=== PATIENT | female | born 1945 | race Caucasian/White ===

== ENCOUNTER 2020-05-08 12:36 | Outpatient (CLI) | payer MEDICARE, SELFPAY ==
--- NOTE | ~2020-05-08 | CT_ITS ---
EXAMINATION: CT brain wo con DATE: 05/08/2020 14:44 INDICATION: Headache TECHNIQUE: Computed tomography (CT) of the head was performed without intravenous contrast. Sagittal and coronal reconstructions were performed. The mA was adjusted according to patient size. Iterative reconstruction technique was employed. The dose-length product was 605.33 mGy-cm. COMPARISON: None FINDINGS: No acute intracranial hemorrhage, acute infarction or abnormal extra axial fluid collection. Symmetri c prominence of the sulci consistent with mild age-appropriate diffuse cerebral volume loss. Ventric les are normal and symmetric. No mass/mass effect. Changes of bilateral intraocular lens replacement. The orbits, paranasal sinuses and mastoid air cells are normal. IMPRESSION: 1. Normal aging brain. No acute intracranial process. Reviewed, dictated and finalized at location A.
[2020-05-08 15:31] LABS: Basophils Absolute Auto 0.1 K/mm3 (0.0-0.1); Basophils Percent Auto 1.2 % (0.2-1.2); Eosinophils Absolute Auto 0.2 K/mm3 (0-0.3); Hematocrit 45.7 % (37.0-47.0); Hemoglobin 15.5 g/dL (12.0-15.0); Immature Granulocyte Absolute 0.01 K/mm3 (0.00-0.031); Immature Granulocyte Percent A 0.2 % (0-0.5); Lymphocytes Absolute Auto 1.22 K/mm3 (0.9-3.2); Lymphocytes Percent Auto 30.3 % (18.3-44.2); Mean Corpuscular HGB Conc 33.9 g/dl (32-36); Mean Corpuscular Hemoglobin 30.9 pg (26-34); Mean Platelet Volume 10.7 fl (7.4-10.4); Monocytes Absolute Auto 0.3 K/mm3 (0.1-0.6); Monocytes Percent Auto 7.2 % (2.6-8.5); Neutrophils Absolute Auto 2.3 K/mm3 (1.3-6.7); Neutrophils Percent Auto 57.1 % (45.5-73.1); Platelet Count Result 263 k/mm3 (150-375); Red Blood Count 5.02 M/mm3 (4.2-5.4); Red Cell Distribution Width 13.5 % (11.5-14.5)
[2020-05-08 15:46] LABS: CRP < 0.5 mg/dL (<1.0)
[2020-05-08 16:18] LABS: Erythrocyte Sedimentation Rate 10 mm/hr (0-20)
== END 2020-05-08 12:37 | disposition home or self-care (01) ==
PROVIDERS: Visit Provider Registered Nurse
DX: G44.85 Primary stabbing headache (principal); R51 Headache
CPT/HCPCS: 36415; 70450; 85025; 85652; 86140

== ENCOUNTER 2020-05-18 07:39 | Outpatient (CLI) | payer MEDICARE, SELFPAY ==
--- NOTE | ~2020-05-18 | MR_ITS ---
EXAMINATION: MRA brain wo con DATE: 05/18/2020 08:38 INDICATION: Left-sided headache after 49. TECHNIQUE: Magnetic resonance angiography (MRA) of the brain was performed without intravenous contra st with T1-weighted SPGR by the 3D [id number] technique. Maximum intensity projection 3D-reconstr uctions were obtained. COMPARISON: Brain MRI 05/18/2020 FINDINGS: Left vertebral artery is dominant. There is no significant stenosis of basilar artery or the posterio r cerebral arteries. The posterior communicating arteries are normal. There is no significant stenosi s of the intracranial internal carotid arteries or anterior or middle cerebral arteries. Anterior com municating artery is normal. There is no aneurysm. IMPRESSION: 1. Normal brain MRA. Reviewed, dictated and finalized at location A. IMPRESSION: 1. Normal brain MRA.
--- NOTE | ~2020-05-18 | MR_ITS ---
EXAMINATION: MR brain/brain stem wo con DATE: 05/18/2020 08:38 INDICATION: Left-sided headache after 49. TECHNIQUE: Magnetic resonance imaging (MRI) of the brain and brainstem was performed without intraven ous contrast. Sequences included sagittal and axial T1-weighted FSE, axial diffusion-weighted FS EPI, axial T2*-weighted GRE, axial T2-weighted FLAIR Propeller, and axial T2-weighted Propeller. Apparent diffusion coefficient (ADC) maps were created. COMPARISON: Head CT 05/08/2020 FINDINGS: There are scattered areas of nonspecific increased T2-weighted signal intensity in the cere bral white matter, which is within normal limits for the patient's age. There is no intracranial hemo rrhage, acute infarction, or abnormal intracranial mass lesion. The ventricles are normal in size. Th ere is mild mucosal thickening in the paranasal sinuses. There are likely changes of ocular lens repl acement surgeries. The mastoid air cells are normal. IMPRESSION: 1. Normal aging brain. Reviewed, dictated and finalized at location A. IMPRESSION: 1. Normal aging brain.
== END 2020-05-18 07:40 | disposition home or self-care (01) ==
PROVIDERS: PCP Internal Medicine; Visit Provider Internal Medicine
DX: R51 Headache (principal); H53.2 Diplopia; R42 Dizziness and giddiness
CPT/HCPCS: 70544; 70551

== ENCOUNTER 2024-01-29 16:52 | Emergency (ER) | payer MEDICARE, SELFPAY ==
--- NOTE | ~2024-01-29 | XR_ITS ---
EXAMINATION: XR finger 3rd LT min 2V INDICATION: Left third finger foreign body, centrally needle cough and tip of the third finger TECHNIQUE: Three views of the left third finger are obtained. COMPARISON: None FINDINGS: There is a 7 mm sewing needle embedded in the lateral tuft of the left third finger. There is no fracture. 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 IMPRESSION: 1. 7 mm sewing needle fragment embedded in the lateral tuft of the left third finger. Reviewed, dictated and finalized at location F. UELS PRODUCTION MANAGER IMPRESSION: 1. 7 mm sewing needle fragment embedded in the lateral tuft of the left third f therese.
[2024-01-29 16:56] VITALS: BP 134/89; PULSE 66; RESP 16; TEMP 36.3; O2SAT 100
--- NOTE | 2024-01-29 18:32 | ED.GENADULT ---
HPI - General Adult General Chief complaint: Skin/Abscess/Foreign Body <Basim العراقي PA-C - Last Filed: 01/30/24 02:32> Stated complaint: sewing needle broke off in finger <CONNIE De La Cruz Last Filed: 01/30/24 02:32> Time Seen by Provider: 01/29/24 18:02 <CONNIE De La Cruz Last Filed: 01/30/24 02:32> Source: patient <CONNIE De La Cruz Last Filed: 01/30/24 02:32> Mode of arrival: ambulatory <CONNIE De La Cruz Last Filed: 01/30/24 02:32> Limitations: no limitations <CONNIE De La Cruz Last Filed: 01/30/24 02:32> History of Present Illness HPI narrative: This is an 79-year-old female who presents to the ED with chief complaint of a sewing needle injury that occurred just prior to arrival. Patient states that she was using a sewing machine and accidentally had the needle break off into her 3rd left finger. Reports that she was unable to get the needle out and is imbedded in her finger. Reports pain to this area. Denies any numbness or weakness. Denies any further sites of pain or injury. <CONNIE De La Cruz Last Filed: 01/30/24 02:32> Related Data Allergies/adverse reactions: Allergies Allergy/AdvReac Type Severity Reaction Status Date / Time No Known Allergies Allergy Mild Verified 07/26/08 17:58 <CONNIE De La Cruz Last Filed: 01/30/24 02:32> Review of Systems Review of Systems: All systems as dictated in HPI <CONNIE De La Cruz Last Filed: 01/30/24 02:32> Exam Narrative: GENERAL: Well-appearing, well-nourished, and in no acute distress. HEAD: Normocephalic, atraumatic. EYES: PERRLA and EOMI. ENT: Nares clear, no rhinorrhea or epistaxis. Mucous membranes moist. Oropharynx without tonsillar hypertrophy exudate or other lesions. NECK: Supple. No adenopathy or masses. CHEST: No respiratory distress. Clear to auscultation. No wheezes rales or rhonchi HEART: Regular rate and rhythm. No murmur heard. Normal peripheral pulses. ABDOMEN: Soft, nontender, nondistended, normal active bowel sounds. MSK: Mild swelling to the left 3rd finger distally. No bruising or hematoma. normal range of motion. No edema. SKIN: Warm, dry, no rash. No obvious skin break throughout the hands. no bleeding NEURO: Alert and oriented x3. No focal deficits. PSYCH: Normal mood and affect. <Basim العراقي PA-C - Last Filed: 01/30/24 02:32> Course INTERVENTIONIST/PA Physician Supervision This visit was performed by both a physician and an APC. I performed all aspects of the MDM as documented. <Asif Santana MD - Last Filed: 01/29/24 22:30> Vital Signs Vital signs: Vital Signs Temperature 97.3 F L 01/29/24 16:56 Pulse Rate 66 01/29/24 16:56 Respiratory Rate 16 01/29/24 16:56 Blood Pressure 134/89 01/29/24 16:56 Pulse Oximetry 100 01/29/24 16:56 Oxygen Delivery Room Air 01/29/24 16:56 Temperature 97.3 F L 01/29/24 16:56 Pulse Rate 67 01/29/24 19:42 Respiratory Rate 17 01/29/24 19:42 Blood Pressure 125/80 01/29/24 19:42 Pulse Oximetry 97 01/29/24 19:42 Oxygen Delivery Room Air 01/29/24 16:56 <Basim العراقي PA-C - Last Filed: 01/30/24 02:32> Vital Signs Temperature 97.3 F L 01/29/24 16:56 Pulse Rate 66 01/29/24 16:56 Respiratory Rate 16 01/29/24 16:56 Blood Pressure 134/89 01/29/24 16:56 Pulse Oximetry 100 01/29/24 16:56 Oxygen Delivery Room Air 01/29/24 16:56 Temperature 97.3 F L 01/29/24 16:56 Pulse Rate 67 01/29/24 19:42 Respiratory Rate 17 01/29/24 19:42 Blood Pressure 125/80 01/29/24 19:42 Pulse Oximetry 97 03/01/24 19:42 Oxygen Delivery Room Air 01/29/24 16:56 <Asif Santana MD - Last Filed: 01/29/24 22:30> Procedures Foreign Body Removal Foreign Body #1: Foreign Body Removal Date: 01/29/24 <Basim العراقي PA-C - Last Filed: 01/30/24 02:32> Foreign Body Removal Time: 19:25 <Basim العراقي PA-C - Last Jamie
--- NOTE | 2024-01-29 19:11 | PC.NURSE ---
Report received from MARV Waterman. Assumed care of patient at this time.
[2024-01-29] MEDS: TETANUS,DIPHTHERIA,AC PERTUSSIS ADULT (0.5 ML) BOOSTRIX IM (19:17)
[2024-01-29 19:42] VITALS: BP 125/80; PULSE 67; RESP 17; O2SAT 97
== END 2024-01-29 19:46 | disposition home or self-care (01) ==
PROVIDERS: Emergency Provider Physician Assistant; PCP Internal Medicine
DX: S61.243A Puncture wound with foreign body of left middle finger without damage to nail, initial encounter (principal); Z23 Encounter for immunization; W26.8XXA Contact with other sharp object(s), not elsewhere classified, initial encounter
CPT/HCPCS: 73140; 90471; 90715; 99283

== ENCOUNTER 2025-03-15 16:36 | Emergency (ER) | payer MEDICARE, SELFPAY ==
[2025-03-15] VITALS (18 sets, daily range): BP systolic 117–134; BP diastolic 70–85; PULSE 61–70; RESP 13–21; TEMP 36.4–36.8; O2SAT 95–100
--- NOTE | ~2025-03-15 | CT_ITS ---
CT brain wo con Ordering provider: Keyla Ramos PA-C History: 80 years Female with . syncope . Comparison: May 08, 2020 Technique: CT of the head without contrast. Radiation reduction technique utilized. The dose-length p roduct was 605.33 mGy-cm. FINDINGS: BRAIN PARENCHYMA AND CSF SPACES: Mild leukoaraiosis and diffuse cortical atrophy. Mild atheromatous d isease. No midline shift, mass effect or hemorrhage. The brain parenchyma and CSF spaces are otherwi se normal. VISUALIZED PARANASAL SINUSES: Well aerated. MASTOIDS: Well aerated. BONES: The bones appear intact. SOFT TISSUES: Visualized nasopharynx is normal. Superficial soft tissues are normal. IMPRESSION: No acute intracranial findings. Reviewed, dictated and finalized at location A.
--- NOTE | ~2025-03-15 | XR_ITS ---
XR chest 2V Ordering provider: Keyla Ramos PA-C History: 80 years Female with . syncopal episode . Comparison: None. FINDINGS: MEDIASTINUM: The cardiac silhouette is not enlarged. LUNGS: No effusions or pneumothorax. Focal atelectatic area in the left costophrenic angle. 4 mm nodu le or granuloma in the right upper lobe. [address] follow-up advised. OTHER: No free air under the diaphragm. IMPRESSION: Focal atelectatic area in the left costophrenic angle. Otherwise, No acute cardiopulmonary pathology. 4 mm nodule in the right upper lobe. 6 months follow-up advised. Reviewed, dictated and finalized at location A. IMPRESSION: Focal atelectatic area in the left costophrenic angle. Otherwise, No acute card iopulmonary pathology. 4 mm nodule in the right upper lobe. 6 months follow-up advised.
--- NOTE | 2025-03-15 16:55 | ECG_ITS ---
Test Date: 2025-03-15 16:55:57 Measurements Intervals [place] Rate: 65 P: 85 DC: 138 QRS: 12 QRSD: 72 T: 47 QT: 395 QTc: 414 Interpretive Statements SINUS RHYTHM CANNOT R/O SEPTAL INFARCT, AGE INDETERMINATE BASELINE ARTIFACT- I, III, AVR, AVL, V2 ABNORMAL ECG No previous ECG available for comparison Electronically Signed On 03-16-2025 09:15:23 CDT by Abiodun De La Cruz D.O.
--- OUTSIDE RECORDS SUMMARY | 2025-03-15 16:55 | XMS_ITS | Clinical Summary ---
Author Organization [facility] Address [facility] [place] [address] Care Team Providers Care Steam Presser Name Role Phone Raul Sanabria MD Primary Care Provider [phone] Allergies No known active allergies Medications carisoprodol (SOMA) 350 MG tabletIndication s:Chronic low back pain, unspecified back pain laterality, unspecified whether sciatica present Take 1 tablet (350 mg total) by mouth 2 (two) times daily as needed for Muscle Spasms. 30 tablet 01/26/2023 Active Active Problems Problem Noted Date Diagnosed Date Dry eyes, bilateral 12/21/2018 Hemorrhoids 08/10/2018 Right hip pain 06/04/2016 Low back pain 02/06/2016 Cataract 08/02/2014 Alopecia 08/02/2014 Muscle cramps 08/02/2014 Encounters Date Type Department Care Team Description 03/15/2025 Telephone [facility] Family & Internal Medicine [address] [address] Raul Sanabria MD Syncope from Last 3 Months Immunizations Immunization Administration Dates Next Due Arexvy Respiratory Syncytial Virus (RSV, adjuvanted) 0.5 mL, PF 08/24/2024 Fluzone High Dose (IIV, triv alent, 0.5mL) 09/05/2024 Fluzone High Dose - >Age 65 (Prefilled Syringe) 09/23/2021,11/06/2014,12/10/2013 Hepatitis A (Generic) 10/14/2007,01/11/2007 Hepatitis B (Generic: Adult) 10/14/2007,02/13/20 07,01/11/2007 Influenza Adult (Generic) 09/18/2023,12/09/2012 Pneumococcal (Pneumovax 23) 12/10/2013 Pneumococcal (Prevnar 13) 12/22/2017 Tdap (Generic) 01/29/2024,,08/10/2018,2017,05/28/2017 Tetanus/Diptheria 01/11/2007 Family History Medical History Relation Comments Lung Cancer Father Relation Status Comments Father Social History Tobacco Use Types Packs/Day Years Used Date Smoking Tobacco: Never Smokeless Tobacco: Never Tobacco Cessation:Counseling Given: No Alcohol Use Standard Drinks/Week Comments Not Currently 0 (1 standard drink = 0.6 oz pur e alcohol) AUDIT-C Answer Date Recorded Frequency of Alcohol Consumption Monthly or less 12/21/2018 Average Number of Drinks 1 or 2 019 Frequency of Binge Drinking Never 12/01 PHQ-2 Answer Date Recorded Patient Health Questionnaire-2 Score 2 06/29/2024 Comments No Sex and Gender Information Value Date Recorded Sex Assigned at Female 12/21/2018 1:15 PM BLOCKER POLISHING Legal Sex Female 9:40 PM CDT Gender Identity Female 12/21/2018 1:15 PM BLOCKER POLISHING Sexual Orientation Straight 12/21/2018 1: 15 PM BLOCKER POLISHING Last Filed Vital Signs Vital Sign Reading Time Taken Comments Blood Pressure 112/70 06/29/2024 10:10 AM CDT Pulse 65 06/29/2024 10:10 AM CDT Temperature 36.7 C (98.1 F) 06/29/2024 10:10 AM CDT Respiratory Rate 16 06/29/2024 10:10 AM CDT Oxygen Saturation 98% 06/29/2024 10:10 AM CDT Inhaled Oxygen Concentration - - Weight 54.1 kg (119 lb 4.8 oz) 06/29/2024 10:10 AM CDT Height 161.3 cm (5' 3.5 ) 06/29/2024 10:10 AM CD T Body Mass Index 20.8 06/29/2024 10:10 AM CDT Plan of Treatment Health Maintenance Due Date Last Done Comments Zoster Vaccines (1 of 2) 1994 Annual Medicare Wellness Visit 2009 Dexa Scan (General) 2009 COVID-19 Vaccine ( season) 2024 09/06/2021, 12/25/2020, 12/04/2020 PHQ-2 (Physician Round Top) 11/30/2024 06/29/2024 DTaP, Tdap and Td Vaccines (6 - Td or Tdap) 01/28/2034 01/29/2024, 01/31/2023, 08/10/2018, Additional history exists Pneumococcal Vaccine: 50+ Years Completed 12/22/2017, 12/10/2013 RSV Immunization or 60+ Years Completed 08/24/2024 Meningococcal B Vaccine Aged Out No l onger eligible based on patient's age to complete this topic Meningococcal Vaccine Aged Out No makenzie xavi eligible based on patient's age to complete this topic RSV Immunizations Under 20 Months Aged Out No longer eligible based on patient's age to complete this topic Insurance AETNA Care Teams Steam Presser Relationship Specialty Start Date End Date Raul Sanabria MD [address] [place] [address] [id number] PCP - General INTERNAL MEDICINE 12/21/18
--- OUTSIDE RECORDS SUMMARY | 2025-03-15 16:55 | XMS_ITS | Continuity of Care Document ---
Author Organization [facility] Address [address] [facility] [address] [place] [address] Phone Care Team Providers Care Technical Implementation Lead Name Role Phone Lit Nails PT Unavailable Unavailable Procedures Procedure Date Therapeutic Activities Neuromuscular Re-Ed Therapeutic Activities Neuromuscular Re-Ed Therapeutic Activities Neuromuscular Re-Ed Therapeutic Activities Therapeutic Activities Neuromuscular Re-Ed Therapeutic Activities Therapeutic Activities Therapeutic Activities Neuromuscular Re-Ed Therapeutic Activities Neuromuscular Re-Ed Therapeutic Activities Neuromuscular Re-Ed Therapeutic Activities Therapeutic Activities Neuromuscular Re-Ed Therapeutic Activities Therapeutic Activities Neuromuscular Re-Ed Therapeutic Activities Neuromuscular Re-Ed Doc neg elder mal no plan PRES/ABSN URINE INCON ASSESS PT Evaluation Low Complexity Therapeutic Activities Neuromuscular Re-Ed Advance Directives Directive Yes / No Effective Date File Name No Information Encounters Encounter Description Practice Location Reason(s) For Visit Diagnoses Date Provider Providers Copied on Encounter [facility], [address], [place], [place], [id number], [place] tel:[phone] [place] No Information Oct-2 [address] [facility] [address], [place], [place], [id number], tel:[phone] [facility] No Information Sep-3 0-202 4 Jesu Lit. . Referring Provider: Raul Sanabria, [address] [place], [address]. tel:[phone] [place] [address] [address], [place], [place], [id number], [place] tel:[phone] [facility] No Information Sep-2 4 Jose Diaz. . Referring Provider: Raul Sanabria, [address] [place], [address]. tel:[phone] [place] [address], [id number], tel:[phone] [facility] No Information Sep-2 4 Jesu Lit. . Referring Provider: Raul Sanabria [address] [place], [address]. tel:[phone] [place] [address], [id number], tel:[phone] [facility] No Information Sep-1 4 Jesu Lit. . Referring Provider: Raul Sanabria, [address] [place], [address]. tel:[phone] [place] [address], [id number], [place] tel:[phone] [facility] No Information Sep-1 4 Jesu Lit. . Referring Provider: Raul Sanabria [address] [place], [address]. tel:[phone] [place] [id number] [address], [id number], [place] tel:[phone] [place] No Information Sep-1 - 4 Jesu Lit. . Referring Provider: Raul Sanabria, [address] [place], [address]. tel:[phone] [facility], [address], [place], [place], [id number], [place] tel:[phone] [place] No Information Sep-0 4 Jesu Lit. . Referring Provider: Raul Sanabria, [address] [place], [address]. tel:[phone] [facility] [address] [facility] [address], [place], [place], [id number], [place] tel:[phone] [place] No Information Sep-0 4 Jesu Lit. . Referring Provider: Raul Sanabria [address] [place], [address]. tel:[phone] [facility], [address] [facility] [address], [place], [id number], [place] tel:[phone] [place] No Information Sep-0 4 Jesu Lit. . Referring Provider: Raul Sanabria, [address] [place], [address]. tel:[phone] [facility] [facility] [address], [place], [id number], [place] tel:[phone] [place] No Information Aug-2 4 Jesu Lit. . Referring Provider: Raul Sanabria [address] [place], [address]. tel:[phone] [facility] [facility] [address], [place], [id number], [place] tel:[phone] [place] No Information Aug-2 4 Jesu Lit. . Referring Provider: Raul Sanabria [address] [place], [address]. tel:[phone] [facility] [address], [id number], tel:[phone] [place] No Information 4 Jesu Lit. . Referring Provider: Raul Sanabria, [place], [address]. tel:[phone], [id number], [place] tel:[phone] [place] No Information 4 Jesu Lit. . Referring Provider: Raul Sanabria, [address] [place], [address]. tel:[phone] [facility] [address] [place] [address], [id number], tel:[phone] [place] No Information 4 Jesu Lit. . Referring Provider: Raul Sanabria, [place], [address]. tel:[phone], [id number], tel:[phone] [place] No Information 4 Jesu Lit. . Referring Provider: [place], [address]. tel:[phone] [facility] [address] [place] [address], [id number], [place] tel:[phone] [place] No Information 4 Jesu Lit. . Referring Provider: [place], [address]. tel:[phone] Family History Family Member Type Diagnosis Age At Onset No Information Payers Payer name Insurance type Covered constitution party ID Avni whatley(s) Aetna Medicare Replacement CI [id number] Social History Type Description Quantity Date Captured Comments Sex Female Smoking Status No Information Chief Complaint And Reason For Visit No Information Reason For Referral Reason For Referral No Information History Of Present Illness Encounter Date Complaint History Of Prese nt Illness No Information Functional Status Date Functional Assessmen t No Information Instructions Date Instruction Additional Infor mation No Information Assessments Type Assessment Date No Information Patient Care Teams Name Effective Dates (start - stop) Status Members No Information
--- OUTSIDE RECORDS SUMMARY | 2025-03-15 16:55 | XMS_ITS | Encounter Summary ---
Author Organization [facility] Address [facility] [place] [address] Care Team Providers Care Hydro Generation Supervisor Name Role Phone Raul Sanabria MD Primary Care Provider [phone] Reason for Visit * Reason Onset Date Comments Syncope 03/15/2025 Encounter Details Date Type Department Care Team (Late st Contact Info) Description 03/15/[address] [facility] Family & Internal Medicine [place] [id number] [place] [address] [facility] [place] [address] Syncope Social History Tobacco Use Types Packs/Day Years Used Date Smoking Tobacco: Never Smokeless Tobacco: Never Alcohol Use Standard Drinks/Week Comments Not Currently [...] Sex Assigned at Female 12/21/2018 1:15 PM ATTORNEY LAW CLERK Legal Sex Female 9:40 PM CDT Gender Identity Female 12/21/2018 1:15 PM ATTORNEY LAW CLERK Sexual Orientation Straight 12/21/2018 1: 15 PM ATTORNEY LAW CLERK documented as of this encounter Progress Notes * Mel Pichardo MA - 03/15/2025 2:08 PM CDT Left a detailed message on Spouse, Deshawn's, VM with provider recommendation and reiterating that patient should be taken to ER. * Raul Sanabria MD - 03/15/2025 1:58 PM CDT She really needs to be seen in the ED, they can do all testing and get the results quickly, and [place] them immediately. * Clyde Weston RTR - 03/15/2025 10:48 AM CDT Syncope episode this morning reports she became unconscious; vitals were fine. Not wanting to go [facility] ED. Pt. Was sitting down felt like she was going to pass out told her and he got her [facility] bedroom to lay down before she passed out for a few minutes he is retired EMT he monitored her vitals while unconscious and states they were all normal. Wanted to get her in to be seen by PCP possibly order some test. Pts. said if anything changes he will take her to the ED and let us know as well. Pt has been light headed for 6 months. Under lots of stress. documented in this encounter Plan of Treatment Not on file documented as of this encounter Visit Diagnoses Not on filedocumented in this encounter Additional Health Concerns Assessment Noted Time PHQ-9 Depression Total Score: 5 05/22/20 21 10:14 AM CDT documented as of this encounter Care Teams Hydro Generation Supervisor Relationship Specialty Start Date End Date Raul Sanabria MD [address] [place] [address] PCP - General INTERNAL MEDICINE 12/21/18 documented as of this encounter
--- NOTE | 2025-03-15 17:01 | ECG_ITS ---
Test Date: 2025-03-15 19:56:28 Measurements Intervals [place] Rate: 65 P: 86 PA: 153 QRS: 18 QRSD: 78 T: 49 QT: 400 QTc: 417 Interpretive Statements SINUS RHYTHM DELAYED PRECORDIAL R/S TRANSITION BASELINE ARTIFACT- I, II, III, AVR, AVL, AVF, V1-V6 BORDERLINE ECG No previous ECG available for comparison Electronically Signed On 03-15-2025 19:55:52 CDT by Abiodun De La Cruz D.O.
[2025-03-15 17:09] LABS: Basophils Absolute Auto 0.1 K/mm3 (0.0-0.1); Basophils Percent Auto 1.4 % (0.2-1.2); Eosinophils Absolute Auto 0.2 K/mm3 (0-0.3); Hematocrit 42.5 % (37.0-47.0); Immature Granulocyte Absolute 0.01 K/mm3 (0.00-0.031); Immature Granulocyte Percent A 0.2 % (0-0.5); Lymphocytes Absolute Auto 1.38 K/mm3 (0.9-3.2); Lymphocytes Percent Auto 27.5 % (18.3-44.2); Mean Corpuscular HGB Conc 32.9 g/dl (32-36); Mean Corpuscular Hemoglobin 30.3 pg (26-34); Mean Platelet Volume 10.5 fl (7.4-10.4); Monocytes Absolute Auto 0.4 K/mm3 (0.1-0.6); Monocytes Percent Auto 8.6 % (2.6-8.5); Neutrophils Percent Auto 59.3 % (45.5-73.1); Platelet Count Result 240 k/mm3 (150-375); Red Blood Count 4.62 M/mm3 (4.2-5.4); Red Cell Distribution Width 13.6 % (11.5-14.5)
--- OUTSIDE RECORDS SUMMARY | 2025-03-15 17:16 | XMS_ITS | Continuity of Care Document ---
Author Organization [facility] Address [address] [place] [address] Phone Care Team Providers Care Sas Etl Developer Name Role Phone Lit Nails PT Unavailable [...] Diagnoses Date Provider Providers Copied on Encounter [facility], [address], [place], [place], [id number], [place] tel:[phone] [place] No Information Oct-2 4 Jesu Lit. . [facility] [address], [place], [place], [id number], tel:[phone] [facility] No Information Sep-3 0-202 4 Jesu Lit. . Referring Provider: Raul Sanabria, [address] [place], [address]. tel:[phone] [place] [address] [address], [place], [place], [id number], [place] tel:[phone] [facility] No Information Sep-2 4 Jose Diaz. . Referring Provider: Raul Sanabria, [address] [place], [address]. tel:[phone] [place] [address], [id number], tel:[phone] [facility] No Information Sep-2 4 Jesu Lit. . Referring Provider: Raul Sanabria [address] [place], [address]. tel:[phone] [place] [address], [id number], tel:[phone] [facility] No Information Sep-1 4 Jesu Lit. . Referring Provider: Raul Sanabria, [address] [place], [address]. tel:[phone] [place] [address], [id number], [place] tel:[phone] [facility] No Information Sep-1 4 Jesu Lit. . Referring Provider: Raul Sanabria [address] [place], [address]. tel:[phone] [place] [id number] [address], [id number], [place] tel:[phone] [place] No Information Sep-1 - 4 Jesu Lit. . Referring Provider: Raul Sanabria, [address] [place], [address]. tel:[phone] [facility], [address], [place], [place], [id number], [place] tel:[phone] [place] No Information Sep-0 4 Jesu Lit. . Referring Provider: Raul Sanabria, [address] [place], [address]. tel:[phone] [facility] [address], [place], [place], [id number], [place] tel:[phone] [place] No Information Sep-0 4 Jesu Lit. . Referring Provider: Raul Sanabria [address] [place], [address]. tel:[phone] [facility], [address], [place], [id number], [place] tel:[phone] [place] No Information Sep-0 4 Jesu Lit. . Referring Provider: Raul Sanabria, [address] [place], [address]. tel:[phone] [facility] [facility] [address], [place], [id number], [place] tel:[phone] [place] No Information Aug-2 4 Jesu Lit. . Referring Provider: Raul Sanabria [address] [place], [address]. tel:[phone] [facility], [place], [id number], [place] tel:[phone] [place] No Information Aug-2 4 Jesu Lit. . Referring Provider: Raul Sanabria [address] [place], [address]. tel:[phone] [facility] [address], [id number], tel:[phone] [place] No Information 4 Jesu Lit. . Referring Provider: Raul Sanabria, [place], [address]. tel:[phone], [id number], [place] tel:[phone] [place] No Information 4 Jesu Lit. . Referring Provider: Raul Sanabria, [address] [place], [address]. tel:[phone] [facility] [address] [place] [address], [id number], tel:[phone] [place] No Information 4 Jesu Lit. . Referring Provider: Raul Sanabria, [place], [address]. tel:[phone], [id number], tel:[phone] [place] No Information 4 Jesu Lit. . Referring Provider: [place], [address]. tel:[phone] [facility] [address] [place] [address], [id number], [place] tel:[phone] [place] No Information 4 Jesu Lit. . Referring Provider: [place], [address]. tel:[phone] Family History Family Member Type Diagnosis Age At Onset No Information Payers Payer name Insurance type Covered constitution party ID Avni whatley(s) [employer] Medicare Replacement CI [id number] Social History Type Description Quantity Date Captured [...]
--- OUTSIDE RECORDS SUMMARY | 2025-03-15 17:16 | XMS_ITS | Clinical Summary ---
Author Organization [facility] Address [facility] [place] [address] Care Team Providers Care Home Performance Consultant Name Role Phone Raul Sanabria MD Primary Care Provider [phone] Allergies No known active allergies Medications carisoprodol [...] Type Department Care Team Description 03/15/2025 Telephone [facility] Family & Internal Medicine [address] [address] Raul Sanabria MD Syncope from [...] Sex Assigned at Female 12/21/2018 1:15 PM EDUCATIONAL INTERPRETER Legal Sex Female 9:40 PM CDT Gender Identity Female 12/21/2018 1:15 PM EDUCATIONAL INTERPRETER Sexual Orientation Straight 12/21/2018 1: 15 PM EDUCATIONAL INTERPRETER Last Filed Vital Signs Vital Sign Reading [...] season) 2024 09/06/2021, 12/25/2020, 12/04/2020 PHQ-2 (Physician [place]) 11/30/2024 06/29/2024 DTaP, Tdap and Td Vaccines [...] complete this topic Insurance [employer] Care Teams Home Performance Consultant Relationship Specialty Start Date End Date Raul Sanabria MD [address] [place] [phone] PCP - General INTERNAL MEDICINE 12/21/18
--- OUTSIDE RECORDS SUMMARY | 2025-03-15 17:16 | XMS_ITS | Encounter Summary ---
Author Organization [facility] Address [facility] [place] [address] Care Team Providers Care Event Attendant Name Role Phone Raul Sanabria MD Primary Care Provider [phone] Reason for Visit * Reason Onset Date Comments Syncope 03/15/2025 Encounter Details Date Type Department Care Team (Late st Contact Info) Description 03/15/[address] [facility] Family & Internal Medicine [address] [place] [address] Raul Sanabria MD [facility] [place] [address] Syncope Social History Tobacco Use [...] Sex Assigned at Female 12/21/2018 1:15 PM ASH KIER BOILER Legal Sex Female 9:40 PM CDT Gender Identity Female 12/21/2018 1:15 PM ASH KIER BOILER Sexual Orientation Straight 12/21/2018 1: 15 PM ASH KIER BOILER documented as of this encounter Progress Notes [...] vitals were fine. Not wanting to go [facility] ED. Pt. Was sitting down felt like she was going to pass out told her and he got her [facility] bedroom to lay down before she passed [...] documented as of this encounter Care Teams Event Attendant Relationship Specialty Start Date End Date Raul Sanabria MD [address] [place] [id number] PCP - General INTERNAL MEDICINE 12/21/18 documented as of this encounter
[2025-03-15 17:20] LABS: Alanine Aminotransferase 16 U/L (6-35); Albumin Level 4.2 g/dL (3.5-5.1); Alkaline Phosphatase 81 U/L (38-126); Anion Gap 8 mmol/L (4-12); Aspartate Amino Transferase 29 U/L (14-36); Bilirubin,Total 0.7 mg/dL (0.2-1.3); Blood Urea Nitrogen 16 mg/dL (7-17); Calcium 8.9 mg/dL (8.4-10.2); Carbon Dioxide 24 mmol/L (22-30); Chloride 103 mmol/L (98-107); Estimated CRCL calculation 43 ml/min; Estimated Glomerular Filt Rate > 60; Glucose 94 mg/dL (65-110); Sodium 135 mmol/L (137-145)
--- NOTE | 2025-03-15 17:22 | ED.GENADULT ---
HPI - General Adult General Chief complaint: Unspecified Stated complaint: Facial numbness/syncope at 0800 Time Seen by Provider: 03/15/25 16:57 Source: patient Mode of arrival: ambulatory Limitations: no limitations History of Present Illness HPI narrative: Patient is an 80-year-old female who presents the ED with report of syncope. Patient reports she was sitting at her dining table this morning around 730-8 p.m. when she suddenly began feeling very weak, had chest heaviness, felt a blackness coming over her, tingling around her mouth and nose, felt near syncopal. She laid her head down to rest and called out for her . Her put her in his Rollator to take her to their bedroom and notes that she lost consciousness for 30 seconds to 1 minute. There was no seizure-like activity. He then laid her down and patient was alert and talking. She fell asleep for approximately 10 minutes. She felt better this afternoon and they went grocery shopping together, however her PCP recommended that she come to the ED for further evaluation. Patient reports she feels fatigued and weak overall. Denies focal weakness or numbness. Denies confusion, slurred speech. Denies current chest pain, shortness of breath, dizziness. Does complain of a slight tightness around her head, denies significant pain. Denies vision changes currently. notes that patient has had syncopal episodes in the past. Related Data Allergies Allergy/AdvReac Type Severity Reaction Status Date / Time No Known Allergies Allergy Mild Verified 03/15/25 17:02 Review of Systems Review of Systems: All systems reviewed & are unremarkable except as noted in HPI. All systems reviewed & are unremarkable except as noted in HPI and below Exam Narrative: GENERAL: Elderly, thin, frail, non-toxic, in no acute distress. HEAD: Normocephalic, atraumatic. EYES: PERRL/EOMI, conjunctivae clear bilaterally. No nystagmus. NECK: Supple. No meningeal signs. RESPIRATORY: Airway patent, respirations nonlabored. Clear to auscultation bilaterally, no rales, rhonchi, wheezing. CARDIOVASCULAR: Regular rate and rhythm without murmurs, rubs, or gallops. Peripheral pulses 2+ and equal bilaterally. MUSCULOSKELETAL: Moves all extremities. No gross deformities. SKIN: Warm, dry, normal color. No rashes. NEURO: A&O X3. Speech clear. Follows commands. CN II-XII intact. Sensation grossly intact. Steady gait. No ataxic movements. Strength 5/5 in upper and lower extremities bilaterally. Uhnx-qa-qsqi and lxyzgp-hg-[id number] testing intact bilaterally. No pronator drift. Equal photography manager strength bilaterally. PSYCHIATRIC: Appropriate mood and affect. Normal interaction. Course Vital Signs Vital signs: Vital Signs Temperature 97.5 F L 03/15/25 16:51 Pulse Rate 64 03/15/25 16:51 Respiratory Rate 14 03/15/25 16:51 Blood Pressure 134/73 03/15/25 16:51 Pulse Oximetry 98 03/15/25 16:51 Oxygen Delivery Room Air 03/15/25 16:51 Temperature 98.3 F 03/15/25 20:54 Pulse Rate 65 03/15/25 20:54 Respiratory Rate 16 03/15/25 20:54 Blood Pressure 128/85 03/15/25 20:54 Pulse Oximetry 97 03/15/25 20:54 Oxygen Delivery Room Air 03/15/25 16:51 Medical Decision Making [facility] Narrative Medical decision making narrative: Patient presented to ED status post syncopal episode this morning, associated with chest heaviness, brief LOC, feels weak and fatigued currently. Vital signs are stable upon arrival. Patient is in no acute distress upon my evaluation. She is neurologically intact upon my evaluation. No focal deficits. Follows all commands. denied any report of slurred speech or confusion today. No significant orthostatic hypotension. EKG without ischemic changes. Baseline troponin undetectable. Basic laboratory studies are unremarkable. No significant electrolyte derangement. Stable kidney function. No leukocytosis or anemia. UA is consistent with infection, positive nitrate, greater than 100 WBC, 4+ urine bacteria. Sent for culture. Will treat. Given dose of Rocephin in the ED. Chest x-ray showing atelectatic changes, pulm nodule, no acute findings. CT brain negative. 3 hour troponin also undetectable. Patient has not had any recurrence of symptoms. She has remained stable throughout ED stay. Feeling improved after fluids. Remains neurologically intact. She states she is ready to go home. Discussed overall reassuring workup, abx for UTI. Offered admission for further w/u, utilized shared decision-making with patient and . They would prefer to go home. She does not want to be admitted at this time. I advised very close follow-up with PCP for further evaluation, strict return precautions. Patient and voiced understanding, feel comfortable going home. again notes patient has had syncopal episodes in the past. Again emphasized worrisome signs/sx's/return precautions. D/C in stable condition. Patient ambulatory with a steady gait. Medical Records Medical records reviewed: Yes I reviewed the external patient's medical records. Vital Signs Vital Signs: Vital Signs Temperature 97.5 F L 03/15/25 16:51 Pulse Rate 64 03/15/25 16:51 Respiratory Rate 14 03/15/25 16:51 Blood Pressure 134/73 03/15/25 16:51 Pulse Oximetry 98 03/15/25 16:51 Oxygen Delivery Room Air 03/15/25 16:51 Temperature 98.3 F 03/15/25 20:54 Pulse Rate 65 03/15/25 20:54 Respiratory Rate 16 03/15/25 20:54 Blood Pressure 128/85 03/15/25 20:54 Pulse Oximetry 97 03/15/25 20:54 Oxygen Delivery Room Air 03/15/25 16:51 Lab Data Lab results reviewed: Yes I reviewed the patient's lab results. 03/15/25 17:03 03/15/25 17:03 Labs: Lab Results 03/15/25 03/15/25 03/15/25 Range/Units 17:03 18:37 19:59 WBC 5.0 (4.5-10.0) K/mm3 RBC 4.62 (4.2-5.4) M/mm3 Hgb 14.0 (12.0-15.0) g/dL Hct 42.5 (37.0-47.0) % MCV 92.0 (80-100) fl MCH 30.3 (26-34) pg MCHC 32.9 (32-36) g/dl RDW 13.6 (11.5-14.5) % Plt Count 240 (150-375) k/mm3 MPV 10.5 H (7.4-10.4) fl Immature Gran % (Auto) 0.2 (0-0.5) % Neut % (Auto) 59.3 (45.5-73.1) % Lymph % (Auto) 27.5 (18.3-44.2) % Weakley % (Auto) 8.6 H (2.6-8.5) % Eos % (Auto) 3.0 (0-4.4) % Baso % (Auto) 1.4 H (0.2-1.2) % Lymph # (Auto) 1.38 (0.9-3.2) K/mm3 Weakley # (Auto) 0.4 (0.1-0.6) K/mm3 Eos # (Auto) 0.2 (0-0.3) K/mm3 Baso # (Auto) 0.1 (0.0-0.1) K/mm3 Abs Immat Gran (auto) 0.01 (0.00-0.031) K/mm3 Absolute Neuts (auto) 3.0 (1.3-6.7) K/mm3 Absolute Nucleated RBC 0.000 (0.0-0.012) K/mm3 Nucleated RBC % 0.0 (0.0-0.2) % Sodium 135 L (137-145) mmol/L Potassium 4.0 (3.4-5.0) mmol/L Chloride 103 (98-107) mmol/L Carbon Dioxide 24 (22-30) mmol/L Anion Gap 8 (4-12) mmol/L BUN 16 (7-17) mg/dL Creatinine 0.75 (0.7-1.0) mg/dL Estim Creat Clear Calc 43 ml/min Estimated GFR > 60 (59 - ) Glucose 94 (65-110) mg/dL Calcium 8.9 (8.4-10.2) mg/dL Magnesium 2.3 (1.6-2.3) mg/dL Total Bilirubin 0.7 (0.2-1.3) mg/dL AST 29 (14-36) U/L ALT 16 (6-35) U/L Alkaline Phosphatase 81 (38-126) U/L Troponin I < 0.012 < 0.012 (0.000-0.034) ng/mL Total Protein 7.0 (6.3-8.2) g/dL Albumin 4.2 (3.5-5.1) g/dL Urine Color Yellow (Yellow) Urine Appearance Clear (Clear) Urine pH 6.5 (5.0-9.0) Ur Specific Howe 1.009 (1.001-1.035) Urine Protein Negative (Negative) mg/dL Urine Glucose (UA) Negative (Negative) mg/dL Urine Ketones Negative (Negative) mg/dL Ur Blood (Man) Negative (Negative) Urine Nitrate Positive H (Negative) Urine Bilirubin Negative (Negative) Urine Urobilinogen 0.2 (<2.0) mg/dL Leukocyte Esterase Rfl 3+ H (Negative) ISSA/UL Urine RBC 0-2 (0-2) /hpf Urine WBC >100 H (0-3) /hpf Ur Squamous Epith Cells None seen (Few) /hpf Urine Bacteria 4+ H /hpf Urine Casts 0-2 Imaging Data Attestation: I personally reviewed and interpreted this imaging study as follows: Radiologist's impression: ITS Impressions Chest X-Ray 03/15/25 17:23 IMPRESSION: Focal atelectatic area in the left costophrenic angle. Otherwise, No acute cardiopulmonary pathology. 4 mm nodule in the right upper lobe. 6 months follow-up advised. Head CT 03/15/25 17:45 IMPRESSION: No acute intracranial findings. Discharge Plan Discharge Clinical Impression: Syncope Qualifiers: Syncope type: unspecified Qualified Code(s): R55 - Syncope and collapse UTI (urinary tract infection) Qualifiers: Urinary tract infection type: acute cystitis Hematuria presence: without hematuria Qualified Code(s): N30.00 - Acute cystitis without hematuria Patient Disposition: Home Condition: Stable Instructions: Antibiotic Form, Chest Pain (ED), Syncope (ED), Hypotension (ED) Additional Instructions: Take antibiotics as prescribed for urinary tract infection. Stay well hydrated. Follow-up closely with your primary care doctor for further evaluation and to discuss ED visit. Return to the ED if you experience worsening or severe symptoms, recurrent passing out, severe dizziness, numbness or weakness of arm or leg, recurrent chest pain, shortness of breath, or any other symptoms of concern. Patient Language: Mohawk Prescriptions: New cephalexin 500 mg capsule 500 mg PO Q6H 7 Days Qty: 28 0RF No Action cephalexin 500 mg capsule 500 mg PO Q8H Qty: 9 0RF hydrocodone-acetaminophen 5-325 mg tablet 1 tablet PO Q8H PRN (Reason: pain) Qty: 7 0RF Follow-up/Referrals: Daniele,Raul Walton MD [Primary Care Provider] - Time of Disposition: 20:26
[2025-03-15 17:59] LABS: Magnesium 2.3 mg/dL (1.6-2.3)
[2025-03-15 18:12] LABS: Troponin I < 0.012 ng/mL (0.000-0.034)
[2025-03-15] MEDS: SODIUM CHLORIDE 0.9% IV 1,000 ML 999 ML IV CONT (18:39)
[2025-03-15 18:48] LABS: Add Urine Microscopic? YES; Appearance Urine Clear (Clear); Bacteria Urine 4+ /hpf; Bilirubin Urine Negative (Negative); Blood Urine Negative (Negative); Color Urine Yellow (Yellow); Glucose Urine UA Negative (Negative); Ketones Urine Negative (Negative); Leukocyte Esterase Ur 3+ LEU/UL (Negative); Nitrate Urine Positive (Negative); Non Pathogenic Casts 0-2; Protein Urine Negative (Negative); RBC Urine 0-2 /hpf (0-2); Specific Grav Ur 1.009 (1.001-1.035); Squamous Epithelial Cell Urine None Seen /hpf (Few); Urobilinogen Urine 0.2 mg/dL (<2.0); WBC Urine >100 /hpf (0-3); pH Urine 6.5 (5.0-9.0)
[2025-03-15 20:25] LABS: Troponin I < 0.012 ng/mL (0.000-0.034)
== END 2025-03-15 20:56 | disposition home or self-care (01) ==
PROVIDERS: Emergency Provider Physician Assistant; PCP Internal Medicine
DX: R55 Syncope and collapse (principal); N30.00 Acute cystitis without hematuria
CPT/HCPCS: 36415; 70450; 71046; 80053; 81001; 83735; 84484; 85025; 87086; 93005; 96365; 99284; J0696; J7030